=== PATIENT | female | born 1980 | race Caucasian/White ===

== ENCOUNTER 2016-10-18 11:44 | Emergency (ER) | payer OTHER ==
[2016-10-18 13:31] LABS: HEMOGLOBIN 11.3 gm/dl (12.3-15.3); RED BLOOD COUNT 4.49 M/UL (4.00-5.10); WHITE BLOOD COUNT 9.2 K/UL (4.5-11.0)
[2016-10-18 13:50] LABS: BUN/CREATININE RATIO 13 (0-10)
== END 2016-10-18 17:30 | disposition home or self-care (01) ==
LOC: ER1 11:44
PROVIDERS: Family Medicine
DX: K44.9 Diaphragmatic hernia without obstruction or gangrene (principal); E11.9 Type 2 diabetes mellitus without complications; K21.9 Gastro-esophageal reflux disease without esophagitis; F17.210 Nicotine dependence, cigarettes, uncomplicated; Z88.0 Allergy status to penicillin; Z79.899 Other long term (current) drug therapy; Z87.442 Personal history of urinary calculi; Z79.84 Long term (current) use of oral hypoglycemic drugs
CPT/HCPCS: 36415; 80053; 81001; 83690; 84703; 85025; 99284; J7050; Q9962

== ENCOUNTER → 2020-06-15 | Outpatient (CLI) | payer OTHER ==
[~2020-06-15] MED LIST: CATAPRES 0.1MG0.1 MG PO; CEPHALEXIN500 MG PO; DIFLUCAN150 MG PO; IPRAT-ALBUT 0.5-3 ML INH; LODINE CAP 300300 MG PO; LOSARTAN-HCTZ1 EAC2 PO; NORCO 5-325 TA1 EACH PO; NORFLEX 100 MG100 MG PO; OMNICEF 300 MG300 MG PO; ZOFRAN ODT 4 MG4 MG PO
== END ==
LOC: SLEEP 21:30
DX: G47.33 Obstructive sleep apnea (adult) (pediatric) (principal); F51.04 Psychophysiologic insomnia
CPT/HCPCS: 95810

== ENCOUNTER → 2020-07-01 | Outpatient (CLI) | payer OTHER | LOC: KOH-I 10:29 | DX: R06.00 Dyspnea, unspecified (principal) | CPT/HCPCS: 71046 ==

== ENCOUNTER 2020-07-17 11:12 | Emergency (ER) | payer OTHER ==
[~2020-07-17 11:12] MED LIST changes: -CEPHALEXIN500 MG PO
[2020-07-17 12:11] LABS: HEMOGLOBIN 11.4 gm/dl (12.3-15.3); RED BLOOD COUNT 3.83 M/UL (4.00-5.10); WHITE BLOOD COUNT 7.5 K/UL (4.5-11.0)
[2020-07-17 12:35] LABS: BUN/CREATININE RATIO 24 (0-10)
== END 2020-07-17 13:32 | disposition home or self-care (01) ==
LOC: ER1 11:12
PROVIDERS: Physician Assistant
DX: R60.0 Localized edema (principal); I10 Essential (primary) hypertension; J45.909 Unspecified asthma, uncomplicated; K21.9 Gastro-esophageal reflux disease without esophagitis; E03.9 Hypothyroidism, unspecified; Z90.710 Acquired absence of both cervix and uterus; Z88.0 Allergy status to penicillin
CPT/HCPCS: 36415; 71045; 80053; 83880; 85025; 99285

== ENCOUNTER 2020-11-28 11:01 | Emergency (ER) | payer SELFPAY ==
[2020-11-28 13:16] LABS: HEMOGLOBIN 11.2 gm/dl (12.3-15.3); RED BLOOD COUNT 3.98 M/UL (4.00-5.10)
[2020-11-28 13:42] LABS: BUN/CREATININE RATIO 19 (0-10)
== END 2020-11-28 13:10 | disposition left against medical advice (07) ==
LOC: ER1 11:01
PROVIDERS: Physician Assistant Medical
DX: R07.89 Other chest pain (principal); R53.83 Other fatigue; E11.9 Type 2 diabetes mellitus without complications; I10 Essential (primary) hypertension; J45.909 Unspecified asthma, uncomplicated; Z90.710 Acquired absence of both cervix and uterus; Z88.0 Allergy status to penicillin; Z88.8 Allergy status to other drugs, medicaments and biological substances
CPT/HCPCS: 80053; 82550; 82553; 83874; 84439; 84443; 84484; 85025; 93005; 99285

== ENCOUNTER 2020-12-08 16:11 | Emergency (ER) | payer OTHER ==
[2020-12-08 17:13] LABS: HEMOGLOBIN 11.9 gm/dl (12.3-15.3); RED BLOOD COUNT 4.2 M/UL (4.00-5.10); WHITE BLOOD COUNT 10.3 K/UL (4.5-11.0)
[2020-12-08 17:35] LABS: BUN/CREATININE RATIO 14 (0-10)
[2020-12-08] MEDS ORDERED: CEPHALEXIN500 MG PO (18:53)
[2020-12-08] MEDS ORDERED: DIFLUCAN150 MG PO (18:53)
== END 2020-12-08 19:00 | disposition home or self-care (01) ==
LOC: ER1 16:11
PROVIDERS: Emergency Medicine
DX: S39.012A Strain of muscle, fascia and tendon of lower back, initial encounter (principal); R30.0 Dysuria; R10.9 Unspecified abdominal pain; Z88.0 Allergy status to penicillin; Z90.710 Acquired absence of both cervix and uterus; Z79.899 Other long term (current) drug therapy; Z87.442 Personal history of urinary calculi; X50.0XXA Overexertion from strenuous movement or load, initial encounter
CPT/HCPCS: 80053; 81001; 85025; 87086; 99284

== ENCOUNTER 2020-12-20 14:22 | Emergency (ER) | payer OTHER ==
[~2020-12-20 14:22] MED LIST changes: +CEPHALEXIN500 MG PO
== END 2020-12-20 21:33 | disposition home or self-care (01) ==
LOC: ER1 14:22
DX: S46.912A Strain of unspecified muscle, fascia and tendon at shoulder and upper arm level, left arm, initial encounter (principal); S29.012A Strain of muscle and tendon of back wall of thorax, initial encounter; M54.5 Low back pain; G89.29 Other chronic pain; E03.9 Hypothyroidism, unspecified; I10 Essential (primary) hypertension; K21.9 Gastro-esophageal reflux disease without esophagitis; Z90.710 Acquired absence of both cervix and uterus; Z88.0 Allergy status to penicillin; Z79.899 Other long term (current) drug therapy; X50.9XXA Other and unspecified overexertion or strenuous movements or postures, initial encounter; Y93.89 Activity, other specified; Y92.89 Other specified places as the place of occurrence of the external cause; Y99.0 Civilian activity done for income or pay
CPT/HCPCS: 72070; 73030; 96372; 99283; J1885

== ENCOUNTER → 2022-01-02 | Emergency (ER) | payer OTHER | END | disposition left against medical advice (07) | LOC: ER1 22:14 | DX: Z53.21 Procedure and treatment not carried out due to patient leaving prior to being seen by health care provider (principal) ==

== ENCOUNTER 2022-01-17 19:24 | Emergency (ER) | payer OTHER | END 2022-01-17 22:18 | disposition home or self-care (01) | LOC: ER1 19:24 | DX: U07.1 COVID-19 (principal); E11.9 Type 2 diabetes mellitus without complications; I10 Essential (primary) hypertension; Z90.710 Acquired absence of both cervix and uterus; Z88.0 Allergy status to penicillin; Z87.891 Personal history of nicotine dependence | CPT/HCPCS: 93005; 99284; M0222 ==